=== PATIENT | male | born 1955 | race Caucasian/White ===

== ENCOUNTER 2016-08-29 20:53 | Emergency (ER) | payer OTHER ==
[~2016-08-29 20:53] MED LIST: AMBIEN10 MG PO; AMBIEN5 MG PO; BACLOFEN10 MG PO; DIAZEPAM10 MG PO; DIAZEPAM5 MG PO; DITROPAN XL15 MG PO; DULOXETINE30 MG PO; IBUPROFEN400 MG PO; INVOKANA100 MG PO; LEVEMIR100 U/M1 SC; LISINOPRIL10 MG PO; LORAZEPAM2 MG PO; LYRICA150 M1 PO; PRILOSEC40 MG PO; TRAMADOL HCL50 MG PO; ZOLOFT100 MG PO
[2016-08-29 22:41] VITALS: BP 113/65
== END 2016-08-29 22:41 | disposition home or self-care (01) ==
LOC: ED 20:53
DX: M54.2 Cervicalgia (principal); I10 Essential (primary) hypertension; E11.9 Type 2 diabetes mellitus without complications
CPT/HCPCS: J1885